=== PATIENT | male | born 1940 | race American Indian/Alaskan Native ===

== ENCOUNTER 2017-10-12 10:08 | Emergency (ER) | payer MEDICARE ==
[2017-10-12 11:05] LABS: Hemoglobin 14.2 gm/dl (11.8-15.2); Mean Corpuscular HGB Conc 33 % (32-34); Mean Corpuscular Hemoglobin 31 pg (28-32); Mean Corpuscular Volume 94 fl (84-94); Platelet Count 161 K/mm3 (140-440); Red Blood Count 4.58 M/mm3 (3.65-5.03); Red Cell Distribution Width 14.8 % (13.2-15.2)
--- NOTE | 2017-10-12 11:17 | Emergency Department Report ---
ED Seizure HPI - General Chief Complaint: Seizure Stated Complaint: SEIZURE Time Seen by Provider: 10/12/17 10:51 Source: patient, EMS Mode of arrival: Stretcher Limitations: No Limitations - History of Present Illness Initial Comments: This is a pleasant 76-year-old gentleman who is accompanied by his daughter today after having had a seizure at 4:30 AM and then a another seizure at around 9 AM today. Patient has a past medical history significant for seizure disorder as well as early onset Alzheimer's dementia and a left hip replacement 2. He is a smoker and former alcoholic who admits to having a glass of wine with dinner every night. The daughter states that the patient is able to ambulate on his own with a cane. The patient reports that he has had a headache since last night. It is in the frontal region and he says that right now the headache is mild but was quite severe previously. The daughter reports that the last seizure that he has had before this episode was roughly 3 months ago. They report that he is very compliant with his medications. Denies any other symptoms. Denies chest pain, shortness of breath, nausea, vomiting, diarrhea, weakness,. Denies any kind of focal neurological symptoms at this time. Denies incontinence or biting the tongue or oral injury. -: Sudden, days(s) (1) Description of Episode: tonic-clonic movement -: minutes(s) (few) Witnessed:: Yes Trauma: No Seizure History: known seizure disorder Place: home Possible Precipitating Event: none Associated Symptoms: denies: chest pain, confusion, cough, diaphoresis, fever/ chills, loss of appetite, malaise, rash, shortness of breath, syncope, weakness , tongue injury, shoulder dislocation Treatments Prior to Arrival: none - Related Data Home Medications Medication Instructions Recorded Confirmed Last Taken Donepezil [Aricept] 5 mg PO QDAY 10/12/17 10/12/17 10/12/17 Phenytoin 125 mg PO QDAY 10/12/17 10/12/17 10/12/17 Tamsulosin [Flomax] 0.4 mg PO QDAY 10/12/17 10/12/17 10/12/17 amLODIPine [Norvasc] 5 mg PO DAILY 10/12/17 10/12/17 10/12/17 Allergies Allergy/AdvReac Type Severity Reaction Status Date / Time No Known Allergies Allergy Unverified 10/12/17 10:41 ED Review of Systems ROS: Stated complaint: SEIZURE Other details as noted in HPI Comment: All other systems reviewed and negative Constitutional: see HPI Eyes: as per HPI ENT: as per HPI Respiratory: see HPI Cardiovascular: as per HPI Endocrine: see HPI Gastrointestinal: as per HPI Genitourinary: as per HPI Musculoskeletal: as per HPI Skin: as per HPI Neurological: as per HPI Psychiatric: as per HPI Hematological/Lymphatic: as per HPI ED Past Medical Hx - Past Medical History Previous Medical History?: Yes Hx Seizures: Yes Additional medical history: prostate cancer - Surgical History Past Surgical History?: Yes Additional Surgical History: L. hip - Social History Smoking Status: Current Every Day Smoker Substance Use Type: Alcohol - Medications Home Medications: Home Medications Medication Instructions Recorded Confirmed Last Taken Type Donepezil [Aricept] 5 mg PO QDAY 10/12/17 10/12/17 10/12/17 History Phenytoin 125 mg PO QDAY 10/12/17 10/12/17 10/12/17 History Tamsulosin [Flomax] 0.4 mg PO QDAY 10/12/17 10/12/17 10/12/17 History amLODIPine [Norvasc] 5 mg PO DAILY 10/12/17 10/12/17 10/12/17 History ED Physical Exam - General Limitations: No Limitations General appearance: alert, in no apparent distress - Head Head exam: Present: atraumatic - Eye Eye exam: Present: normal appearance, PERRL, EOMI - ENT ENT exam: Present: normal exam - Neck Neck exam: Present: normal inspection, full ROM - Respiratory Respiratory exam: Present: normal lung sounds bilaterally - Cardiovascular Cardiovascular Exam: Present: regular rate, normal rhythm, normal heart sounds - GI/Abdominal GI/Abdominal exam: Present: soft, normal bowel sounds ED Course Vital Signs 10/12/17 10/12/17 10/12/17 10:17 10:32 13:00 Temperature 97.8 F Pulse Rate 85 80 Respiratory 16 18 18 Rate Blood Pressure 132/73 132/73 [Left] O2 Sat by Pulse 100 100 100 Oximetry - Reevaluation(s) Reevaluation #1: 10/12/17 11:24 The patient appears to be at baseline at this time. We'll go ahead and assess his phenytoin level. We will also get baseline labs with a CBC and a CMP. Also get a UA. His headache is very mild at this time. unLess it progresses do not think that we should get a head CT. I'll also go ahead and give him Valium here in the emergency room. 10/12/17 16:15 Discussed the results with the patient. Apparently his phenytoin level was low because of a recent decrease in his medications. Per the family is phenytoin level was checked a couple months ago and was elevated. His doctor decided to decrease his phenytoin level. Today it is very low and we did give fosphenytoin IV. Patient is stable at this time. We will go ahead and discharge the patient with the idea that the primary care doctor or neurologist will readjust the patient's phenytoin level. ED Medical Decision Making - Lab Data Result diagrams: 10/12/17 10:44 10/12/17 10:49 Critical care attestation.: If time is entered above; I have spent that time in minutes in the direct care of this critically ill patient, excluding procedure time. ED Disposition Clinical Impression: Seizure disorder Disposition: DC-01 TO HOME OR SELFCARE Is pt being admited?: No Does the pt Need Aspirin: No Condition: Stable Instructions: Recurrent Seizures Adult (ED) Additional Instructions: Follow-up with her primary care doctor or neurologist, rest, fluids, watch for worsening or new symptoms, return as needed to the emergency room, she feels like having a life-threatening emergency, 911. Referrals: PRIMARY CARE, [Primary Care Provider] - 3-5 Days
[2017-10-12 11:20] LABS: BUN/Creatinine Ratio 10; Blood Urea Nitrogen 9 mg/dL (9-20); Hemolysis Index 31
[2017-10-12] MEDS ORDERED: VALIUM IV ONE (11:26)
[2017-10-12] MEDS ORDERED: ATIVAN ONE (12:38)
[2017-10-12] MEDS ORDERED: ATIVAN IV ONE (12:42)
[2017-10-12] MEDS ORDERED: CEREBYX 1,000 MG.PE in NACL 0.9% 100 ML IV ONE (13:33)
[2017-10-12 15:27] VITALS: BP 132/73
[2017-10-12 16:10] LABS: Bilirubin,Urine NEG (Negative); Blood,Urine NEG (Negative); Color,Urine Yellow (Yellow); Protein,Urine <15 mg/dL mg/dL (Negative); Urobilinogen,Urine < 2.0 mg/dL (<2.0); WBC,Urine < 1.0 /HPF (0.0-6.0)
== END 2017-10-12 17:00 | disposition home or self-care (01) ==
LOC: ED 10:08
DX: G40.909 Epilepsy, unspecified, not intractable, without status epilepticus (principal); F17.200 Nicotine dependence, unspecified, uncomplicated; C61 Malignant neoplasm of prostate
CPT/HCPCS: 36415; 80048; 80185; 81001; 85027; 96365; 96375; 99284; J2060; Q2009

== ENCOUNTER 2018-01-09 14:19 | Inpatient (IN) | payer MEDICARE ==
[2018-01-09 16:13] LABS: Basophils % (Auto) 0.6 % (0.0-1.8); Eosinophils % (Auto) 0.3 % (0.0-4.3); Hematocrit 41.7 % (35.5-45.6); Lymphocytes # (Auto) 0.7 K/mm3 (1.2-5.4); Mean Corpuscular HGB Conc 34 % (32-34); Mean Corpuscular Hemoglobin 31 pg (28-32); Mean Corpuscular Volume 92 fl (84-94); Monocytes # (Auto) 0.8 K/mm3 (0.0-0.8); Monocytes % (Auto) 10.9 % (0.0-7.3); Platelet Count 223 K/mm3 (140-440); Red Blood Count 4.55 M/mm3 (3.65-5.03); Red Cell Distribution Width 15.6 % (13.2-15.2)
--- NOTE | 2018-01-09 16:22 | Emergency Department Report ---
ED Shortness of Breath HPI - General Chief Complaint: Dyspnea/Respdistress Stated Complaint: DYSPNEA Time Seen by Provider: 01/09/18 16:21 Source: EMS Mode of arrival: Stretcher Limitations: Altered Mental Status, Other (severe alzheimer disease.) - History of Present Illness Initial Comments: Patient was brought to the emergency room for decreased oxygen saturation. However patient uses oxygen in the [facility]. He was not wearing his oxygen when he was found with decreased oxygen saturation. His oxygen was restarted on his O2 sats went back to 100%. On arrival to the ED his O2 sat was normal. Patient is nonverbal and does not communicate.. He does not answer questions when asked. Patient has history of severe Alzheimer disease. He is bedbound and does not ambulate. MD Complaint: shortness of breath -: Sudden Consistency: now resolved Improves With: oxygen Worsens With: nothing - Related Data Previous Rx's Medication Instructions Recorded Last Taken Type Nitrofurantoin Jay/M-Cryst 100 mg PO Q12HR #14 capsule 01/02/18 Unknown Rx [Macrobid CAP] Donepezil [Aricept] 5 mg PO QPM #30 tablet 01/05/18 Unknown Rx Donepezil [Aricept] 5 mg PO QPM #30 tablet 01/05/18 Unknown Rx Famotidine [Pepcid] 20 mg PO BID #60 tablet 01/05/18 Unknown Rx Ipratropium/Albuterol Sulfate 1 spray IH BID #1 mist.inhal 01/05/18 Unknown Rx [Combivent Respimat] Ipratropium/Albuterol Sulfate 1 ampul IH TIDRT #100 ampul.neb 01/05/18 Unknown Rx [DUONEB *Not for PRN Use*] Tamsulosin [Flomax] 0.4 mg PO QDAY #30 capsule 01/05/18 Unknown Rx amLODIPine [Norvasc] 5 mg PO DAILY #30 tablet 01/05/18 Unknown Rx buPROPion SR [Wellbutrin SR] 150 mg PO BID #60 tablet 01/05/18 Unknown Rx Allergies Allergy/AdvReac Type Severity Reaction Status Date / Time No Known Allergies Allergy Unverified 10/12/17 10:41 ED Review of Systems ROS: Stated complaint: DYSPNEA Other details as noted in HPI Comment: Unobtainable due to pts medical conditions (Alzheimer Dementia.) ED Past Medical Hx - Past Medical History Previous Medical History?: Yes Hx Hypertension: Yes Hx Heart Attack/AMI: No Hx Congestive Heart Failure: No Hx Diabetes: No Hx Pulmonary Embolism: No Hx Renal Disease: No Hx of Cancer: Yes (prostate) Hx Sickle Cell Disease: No Hx Arthritis: Yes Hx Seizures: Yes Hx Kidney Stones: No Hx Asthma: No Hx COPD: No Hx Tuberculosis: No Hx Dementia: Yes (alzheimers) Hx HIV: No Additional medical history: prostate cancer - Surgical History Past Surgical History?: Yes Hx Open Heart Surgery: No Hx Pacemaker: No Hx Internal Defibrillator: No Hx Breast Surgery: No Additional Surgical History: L. hip - Social History Smoking Status: Unknown if ever smoked Substance Use Type: None - Medications Home Medications: Home Medications Medication Instructions Recorded Confirmed Last Taken Type Nitrofurantoin Jay/M-Cryst 100 mg PO Q12HR #14 capsule 01/02/18 01/09/18 Unknown Rx [Macrobid CAP] Donepezil [Aricept] 5 mg PO QPM #30 tablet 01/05/18 01/09/18 Unknown Rx Donepezil [Aricept] 5 mg PO QPM #30 tablet 01/05/18 01/09/18 Unknown Rx Famotidine [Pepcid] 20 mg PO BID #60 tablet 01/05/18 01/09/18 Unknown Rx Ipratropium/Albuterol Sulfate 1 spray IH BID #1 mist.inhal 01/05/18 01/09/18 Unknown Rx [Combivent Respimat] Ipratropium/Albuterol Sulfate 1 ampul IH TIDRT #100 ampul.neb 01/05/18 01/09/18 Unknown Rx [DUONEB *Not for PRN Use*] Tamsulosin [Flomax] 0.4 mg PO QDAY #30 capsule 01/05/18 01/09/18 Unknown Rx amLODIPine [Norvasc] 5 mg PO DAILY #30 tablet 01/05/18 01/09/18 Unknown Rx buPROPion SR [Wellbutrin SR] 150 mg PO BID #60 tablet 01/05/18 01/09/18 Unknown Rx ED Physical Exam - General Limitations: Altered Mental Status General appearance: alert, in no apparent distress - Head Head exam: Present: atraumatic, normocephalic, normal inspection - Eye Eye exam: Present: normal appearance - ENT ENT exam: Present: normal exam - Neck Neck exam: Present: normal inspection - Respiratory Respiratory exam: Present: normal lung sounds bilaterally - Cardiovascular Cardiovascular Exam: Present: regular rate, normal heart sounds - GI/Abdominal GI/Abdominal exam: Present: soft, normal bowel sounds. Absent: tenderness, guarding, rebound - Extremities Exam Extremities exam: Present: normal capillary refill, other (atrophy odf disuse.) . Absent: pedal edema - Back Exam Back exam: Present: full ROM - Neurological Exam Neurological exam: Present: alert - Psychiatric Psychiatric exam: Present: flat affect - Skin Skin exam: Present: warm, dry ED Course Vital Signs 01/09/18 01/09/18 01/09/18 15:08 16:15 18:59 Temperature 97.8 F Pulse Rate 100 H 88 Respiratory 16 18 Rate Blood Pressure 122/80 Blood Pressure 121/73 [Left] O2 Sat by Pulse 98 97 98 Oximetry 01/09/18 19:41 Temperature 98.7 F Pulse Rate 99 H Respiratory 20 Rate Blood Pressure Blood Pressure 139/74 [Left] O2 Sat by Pulse 98 Oximetry - Reevaluation(s) Reevaluation #1: 01/09/18 22:20 i discussed patient care with the hospitalist salon designer Dr Elise. He will admit patient to the hospital for further evaluation and management. ED Medical Decision Making - Lab Data Result diagrams: 01/09/18 16:00 01/09/18 16:00 - EKG Data -: EKG Interpreted by Me EKG shows normal: sinus rhythm Rate: normal (91) - EKG Data When compared to previous EKG there are: previous EKG unavailable Interpretation: nonspecific ST-T wave kelli, other (No STEMI) - Radiology Data Radiology results: report reviewed, image reviewed - Medical Decision Making Shortness of breath. COPD Exacerbation. Critical care attestation.: If time is entered above; I have spent that time in minutes in the direct care of this critically ill patient, excluding procedure time. ED Disposition Clinical Impression: Shortness of breath, COPD exacerbation, Hypoxia, HCAP (healthcare-associated pneumonia) Disposition: OP ADMIT IP TO THIS HOSP Is pt being admited?: Yes Does the pt Need Aspirin: No Condition: Stable Instructions: Chronic Obstructive Pulmonary Disease (ED), Bacterial Pneumonia ( ED) Referrals: PRIMARY CARE, [Primary Care Provider] - 3-5 Days
[2018-01-09 16:28] LABS: BUN/Creatinine Ratio 14; Blood Urea Nitrogen 13 mg/dL (9-20); Hemolysis Index 0
--- NOTE | 2018-01-09 16:57 | XRay Report ---
FINAL REPORT EXAM: XR CHEST 1V AP HISTORY: Shortness of breath TECHNIQUE: AP portable view of the chest PRIORS: None. FINDINGS: Lines, tubes, and devices: N/A Lungs and pleura: Trachea is normal in position. Lungs are clear of infiltrate, pleural effusion, vascular congestion, or pneumothorax. Cardiomediastinal silhouette: Cardiac and mediastinal silhouettes are unremarkable. Other: Bony structures are intact. IMPRESSION: No acute cardiopulmonary process seen.
[2018-01-09] MEDS ORDERED: NACL 0.9% 1000 ML 1,000 ML IV ONE (19:28)
--- NOTE | 2018-01-09 21:56 | Cat Scan Report ---
FINAL REPORT EXAM: CT HEAD/BRAIN WO CON HISTORY: altered mental status TECHNIQUE: Standard unenhanced CT of the head at 5.0 millimeter axial increments. PRIORS: CT head 01/02/2018 FINDINGS: The ventricular system is normal in size and configuration. There is moderate cerebral atrophy and small vessel ischemic changes again noted. There is no evidence for mass lesion, mass effect, midline shift, acute intracranial hemorrhage, or acute ischemia/ infarction. No evidence for acute skull fracture is seen. No abnormality in the overlying scalp soft tissues is seen. Visualized paranasal sinuses are clear. IMPRESSION: Atrophy and small vessel ischemic changes. No acute intracranial process noted. No change.
[2018-01-09] MEDS ORDERED: DUONEB *Not for PRN Use IH ONE (22:18)
--- NOTE | 2018-01-09 22:28 | Cat Scan Report ---
FINAL REPORT EXAM: CT ANGIO CHEST HISTORY: shortness of breath TECHNIQUE: Enhanced CT of the chest at 1.25 mm axial intervals following a pulmonary embolism protocol. Coronal and sagittal imaging were also obtained. Coronal oblique MIP projections were obtained. Contrast: 100 ml of Omnipaque 350 given IV. PRIORS: None. FINDINGS: There is no evidence for pulmonary embolism in the main pulmonary artery, right and left pulmonary arteries or their major distributions. However, CT does not exclude distal pulmonary emboli. There is a small area of consolidation lateral aspect of the right upper lobe. Bibasilar infiltrates are noted. Extensive emphysematous changes are present bilaterally. Bullous changes are present in the right base medially. There is layering debris within the trachea. There is no evidence for mediastinal, hilar, or axillary adenopathy. Cardiovascular structures are within normal limits. No evidence for ventricular chamber enlargement is seen. Images through the lung bases include the upper abdomen which show no abnormalities of the visualized abdominal viscera. Bony structures demonstrate superior endplate compression deformities of T7, T8, and L1. Focal areas of lucency are present throughout the thoracic spine. These may be related osteoporosis however. IMPRESSION: 1. no evidence for pulmonary embolism. 2. Consolidation in the lateral right upper lobe and bibasilar infiltrates noted. Findings are probably infectious. 3. Extensive emphysematous changes bilaterally. 4. Layering debris within the trachea, possibly due to secretions 5. Compression deformities of T7, T8, and L1. 6. Lucencies throughout the thoracic spine. These are probably related osteoporosis. However, given the patient's age, other entity such as multiple myeloma are not entirely excluded.
[2018-01-09] MEDS ORDERED: ZOSYN/NS 4.5GM/100ML 4.5 GM/100 ML VIAL IV ONE (23:00)
[2018-01-09] MEDS ORDERED: VANCOMYCIN/NS 1 GM/250 ML 1 GM/250 ML BAG IV SCH (23:00)
[2018-01-09] MEDS ORDERED: VANCOMYCIN PHARMACY TO DOSE IV SCH (23:00)
[2018-01-09] MEDS ORDERED: PROVENTIL IH PRN (23:07)
[2018-01-10] MEDS ORDERED: VANCOMYCIN/NS 1 GM/250 ML 1 GM/250 ML BAG IV ONE
[2018-01-10] MEDS ORDERED: HEPARIN ONE (00:15)
[2018-01-10] MEDS: HEPARIN SUB-Q SCH ×3 (00:21→22:06)
--- NOTE | 2018-01-10 05:09 | History and Physical Report ---
CHIEF COMPLAINT: Shortness of breath. HISTORY OF PRESENT ILLNESS: The patient is a 77-year-old male brought from the skilled nursing because of difficulty in breathing. The patient wears oxygen at work, found not to be wearing his oxygen at the skilled nursing, and started complaining of shortness of breath. When EMS got there, the patient's oxygen saturation was low and the oxygen was placed on the patient and oxygen saturation went back to 100. There was no history of chest pain, no history of fever or chills, nausea or vomiting. The patient was brought to the Emergency Room. PAST MEDICAL HISTORY: Pertinent for hypertension, prostate cancer, arthritis, seizure disorder, dementia, and the patient is bedbound, and noncommunicative. PAST SURGICAL HISTORY: Pertinent for left hip surgery. FAMILY HISTORY: Noncontributory. SOCIAL HISTORY: The patient stays at the skilled nursing. Does not smoke cigarettes, does not drink or use illicit drugs. MEDICATIONS: The patient is on nitrofurantoin (Macrobid) 100 mg by mouth twice daily, Aricept 5 mg by mouth in the evening time, Pepcid 20 mg by mouth twice daily, Combivent inhaler one inhalation twice daily. Also, the patient is on Duo nebulizer of 1 amp 3 times a day. The patient is on Flomax 0.4 mg by mouth daily, Norvasc, amlodipine 5 mg by mouth daily, Wellbutrin, bupropion 150 mg by mouth twice daily. ALLERGIES: There are no known drug allergies. REVIEW OF SYSTEMS: CONSTITUTIONAL: There is no fever, no chills, no diaphoresis. HEENT: There is no headache or sore throat. CARDIOVASCULAR SYSTEM: There is no chest pain or orthopnea. RESPIRATORY SYSTEM: Shortness of breath is present. There is no cough. GASTROINTESTINAL SYSTEM: There is no nausea, no vomiting, no abdominal pain, diarrhea or constipation. NEUROLOGICAL SYSTEM: There is no numbness, no dizziness; however, there is change in mental status, which is chronic. The patient is demented. MUSCULOSKELETAL SYSTEM: There is no joint pain or swelling. DERMATOLOGICAL SYSTEM: There is no skin rash or itching. GENITOURINARY SYSTEM: There is no dysuria, hematuria or flank pain. Rest of system review is normal. PHYSICAL EXAMINATION: GENERAL: At the time of exam, the patient was found to be lying on his bed, lethargic, arousable, noncommunicative, and not in acute distress. VITAL SIGNS: At the time of evaluation shows temperature of 98.7 degrees Fahrenheit, pulse of 100, respiration 20, blood pressure of 139/74, with O2 sat of 98% on oxygen via nasal cannula at 2 liters per minute. HEENT: Exam shows pupils to be round, reactive to light and accommodation. NECK: Supple with no JVD or carotid bruit. CARDIOVASCULAR SYSTEM: Show normal first and second heart sounds that were heard with no gallops or murmurs. RESPIRATORY SYSTEM: Show reduced air entry on both sides of the lung with no abnormal breath sounds. GASTROINTESTINAL SYSTEM: Show abdomen to be full, soft, and nontender with no organomegaly or rigidity. NEURO: Exam shows no focal deficit elicited with the patient being noncommunicative. MUSCULOSKELETAL SYSTEM: Exam show no joint swelling or tenderness. DERMATOLOGICAL SYSTEM: Shows no skin rash. GENITOURINARY SYSTEM: Exam shows no costovertebral angle tenderness. PERTINENT LABORATORY DATA AND IMAGING STUDIES: The patient has CBC done with normal white count, normal hemoglobin, and normal hematocrit. CBC differential shows elevated monocyte count of 10.5% with slightly elevated segmented neutrophil of 78.2%, and no significant band were found. The patient's arterial blood gas shows normal pH of 7.43, normal pO2 of 43.9, and low pO2 of 73, with normal O2 sat of 95% and this was done on FiO2 of 32%. The patient's chemistry shows slight decrease in sodium level of 131, with low chloride level of 86.3%, elevated CO2 of 31. The patient's renal function was unremarkable. Brain natriuretic peptide level is normal. The patient's troponin level came back unremarkable. IMAGING STUDIES: The patient had a CT of the head without contrast done that shows atrophy and small vessel ischemic changes with no acute intracranial process noted. Also, the patient had CT angiogram of the chest done and this shows no evidence of pulmonary embolism. There is finding of consolidation in the lateral right upper lobe and bibasilar infiltrate noted. Findings, probably infectious according to the radiologist, there is also finding of extensive emphysematous changes bilaterally and there is debris within the trachea, possibly due to secretion. There is finding of lucencies throughout the thoracic spine and the radiologist said that these are probably related to osteoporosis and since; however, given the patient's age, other entities such as multiple myeloma not entirely excluded. The patient's chest x-ray shows no active cardiopulmonary process. DIAGNOSES: 1. Bilateral pneumonia. 2. Chronic obstructive pulmonary disease exacerbation. PLAN: The patient will be admitted to medical floor and will be treated using hospital-associated pneumonia protocol. The patient will be started on intravenous Zosyn 3.375 g every 8 hours and will continue the other for vancomycin brought in by the Emergency Room with pharmacy to adjust the dose. The patient will be on intravenous Solu-Medrol 60 mg every 8 hours for treatment of length of chronic obstructive pulmonary disease exacerbation and will be on Duo nebulizer 3 times a day. The patient will also be on his home medication as shown in the medication reconciliation section. The patient's diet will be 2 g sodium diet. , the patient will be on Tylenol 650 mg by mouth every 4 hours as needed for fever and headache, and will be on intravenous normal saline at 75 mL an hour. The patient will also be on intravenous Zofran 4 mg every 6 hours needed for nausea and vomiting and will be on oxygen by nasal cannula at 2 liter per minute. JOB# [id number] OCN/NTS MTDD
[2018-01-10] MEDS ORDERED: ZOSYN/NS 3.375GM/50ML 3.375 GM/50 ML BAG IV SCH (06:00)
[2018-01-10] MEDS: NACL 0.9% 1000 ML 1,000 ML IV SCH ×2 (06:20→22:06)
[2018-01-10] MEDS: DUONEB *Not for PRN Use IH SCH ×3 (08:58→19:56)
[2018-01-10] MEDS: NORVASC PO SCH (11:10)
[2018-01-10] MEDS: PEPCID PO SCH ×2 (11:10→22:07)
[2018-01-10] MEDS: FLOMAX PO SCH (11:10)
[2018-01-10] MEDS: WELLBUTRIN SR PO SCH ×2 (11:11→22:07)
[2018-01-10] MEDS ORDERED: VANCOMYCIN 750 MG in NACL 0.9% 250ML 250 ML IV SCH (12:00)
[2018-01-10] MEDS: ZOSYN/NS 4.5GM/100ML 4.5 GM/100 ML VIAL IV SCH ×2 (14:42→22:07)
--- NOTE | 2018-01-10 15:30 | Progress Note ---
Assessment and Plan Assessment and plan: --Acute on chronic hypoxic respiratory failure Oxygen titrate to O2 sats more than 90%, nebulizers, IV steroids IV antibiotics --Bilateral pneumonia; on CT chest Blood cultures, IV antibiotics, oxygen and nebulizers --Dementia; continue current home medications --Hyponatremia. IV fluids and closely monitor electrolytes --DVT prophylaxis; Lovenox Closely monitor the patient and adjust management as needed Plan of care is reviewed with the patient and his nurse; Physical therapy occupational therapy Possible discharge in 1-2 days if stable History Interval history: Patient seen and examined in his room, Medical records reviewed Agent was admitted with Worsening shortness of breath and bilateral pneumonia on CT The patient feels better minimally communicative Not no acute distress No new events reported by the nursing Vital signs stable Hospitalist Physical - Constitutional Vitals: Temp Pulse Resp BP Pulse Ox 98.7 F 104 H 16 162/97 94 01/09/18 19:41 01/10/18 13:44 01/10/18 13:44 01/10/18 11:10 01/10/18 09:00 General appearance: Present: no acute distress, well-nourished - EENT Eyes: Present: PERRL, EOM intact - Neck Neck: Present: supple, normal ROM - Respiratory Respiratory effort: normal Respiratory: bilateral: diminished, negative: rales, rhonchi, wheezing - Cardiovascular Rhythm: regular Heart Sounds: Present: S1 & S2 - Extremities Extremities: no ischemia, No edema - Abdominal General gastrointestinal: soft, non-tender, non-distended, normal bowel sounds - Integumentary Integumentary: Present: clear, warm - Psychiatric Psychiatric: cooperative, other (infused) - Neurologic Neurologic: CNII-XII intact, moves all extremities Results - Labs CBC & Chem 7: 01/09/18 16:00 01/09/18 16:00 Labs: Laboratory Last Values WBC 7.5 K/mm3 (4.5-11.0) 01/09/18 16:00 RBC 4.55 M/mm3 (3.65-5.03) 01/09/18 16:00 Hgb 14.0 gm/dl (11.8-15.2) 01/09/18 16:00 Hct 41.7 % (35.5-45.6) 01/09/18 16:00 MCV 92 fl (84-94) 01/09/18 16:00 MCH 31 pg (28-32) 01/09/18 16:00 MCHC 34 % (32-34) 01/09/18 16:00 RDW 15.6 % (13.2-15.2) H 01/09/18 16:00 Plt Count 223 K/mm3 (140-440) 01/09/18 16:00 Lymph % (Auto) 10.0 % (13.4-35.0) L 01/09/18 16:00 [place] % (Auto) 10.9 % (0.0-7.3) H 01/09/18 16:00 Eos % (Auto) 0.3 % (0.0-4.3) 01/09/18 16:00 Baso % (Auto) 0.6 % (0.0-1.8) 01/09/18 16:00 Lymph # 0.7 K/mm3 (1.2-5.4) L 01/09/18 16:00 [place] # 0.8 K/mm3 (0.0-0.8) 01/09/18 16:00 Eos # 0.0 K/mm3 (0.0-0.4) 01/09/18 16:00 Baso # 0.0 K/mm3 (0.0-0.1) 01/09/18 16:00 Seg Neutrophils % 78.2 % (40.0-70.0) H 01/09/18 16:00 Seg Neutrophils # 5.8 K/mm3 (1.8-7.7) 01/09/18 16:00 POC ABG pH 7.436 (7.35-7.45) 01/09/18 22:07 POC ABG pCO2 43.9 (35-45) 01/09/18 22:07 POC ABG pO2 73 (80-105) L 01/09/18 22:07 POC ABG HCO3 29.6 01/09/18 22:07 POC ABG Total CO2 31 01/09/18 22:07 POC ABG O2 Sat 95 01/09/18 22:07 POC ABG Base Excess 5 01/09/18 22:07 FiO2 32 % 01/09/18 22:07 Sodium 131 mmol/L (137-145) L 01/09/18 16:00 Potassium 4.3 mmol/L (3.6-5.0) D 01/09/18 16:00 Chloride 86.3 mmol/L (98-107) L 01/09/18 16:00 Carbon Dioxide 31 mmol/L (22-30) H 01/09/18 16:00 Anion Gap 18 mmol/L 01/09/18 16:00 BUN 13 mg/dL (9-20) 01/09/18 16:00 Creatinine 0.9 mg/dL (0.8-1.5) 01/09/18 16:00 Estimated GFR > 60 ml/min 01/09/18 16:00 BUN/Creatinine Ratio 14 % 01/09/18 16:00 Glucose 102 mg/dL (75-100) H 01/09/18 16:00 Calcium 9.0 mg/dL (8.4-10.2) 01/09/18 16:00 Troponin T < 0.010 ng/mL (0.00-0.029) 01/09/18 16:58 NT-Pro-B Natriuret Pep 406.5 pg/mL (0-900) 01/09/18 16:58
[2018-01-10] MEDS ORDERED: ARICEPT PO SCH (18:00)
[2018-01-10] MEDS: ARICEPT PO SCH (18:19)
[2018-01-10] MEDS: MACROBID PO SCH ×2 (18:19→22:06)
[2018-01-10] MEDS: VANCOMYCIN/NS 1 GM/250 ML 1 GM/250 ML BAG IV SCH (22:08)
[2018-01-11] MEDS: ZOSYN/NS 4.5GM/100ML 4.5 GM/100 ML VIAL IV SCH ×3 (05:11→23:29)
[2018-01-11] MEDS: DUONEB *Not for PRN Use IH SCH ×3 (07:32→20:05)
[2018-01-11] MEDS: PEPCID PO SCH ×3 (10:19→23:41)
[2018-01-11] MEDS: FLOMAX PO SCH (10:19)
[2018-01-11] MEDS: NORVASC PO SCH (10:19)
[2018-01-11] MEDS: WELLBUTRIN SR PO SCH ×2 (10:19→23:32)
[2018-01-11] MEDS: MACROBID PO SCH ×2 (10:20→23:29)
[2018-01-11] MEDS: HEPARIN SUB-Q SCH ×3 (10:21→23:41)
--- NOTE | 2018-01-11 14:04 | Progress Note ---
Assessment and Plan Assessment and plan: --Bilateral pneumonia; on CT chest Blood cultures, IV antibiotics, oxygen and nebulizers --Acute on chronic hypoxic respiratory failure Oxygen titrate to O2 sats more than 90%, nebulizers, IV steroids IV antibiotics --Dementia; continue current home medications --Hyponatremia. IV fluids and closely monitor electrolytes --DVT prophylaxis; Lovenox Closely monitor the patient and adjust management as needed Plan of care is reviewed with the patient and his nurse; Physical therapy occupational therapy Possible discharge in 1-2 days if stable History Interval history: Patient seen and examined medical records reviewed Admitted with altered level of consciousness and bilateral pneumonia On antibiotics Patient feels better, minimally communicative Vital signs reviewed stable Afebrile Hospitalist Physical - Constitutional Vitals: Temp Pulse Resp BP Pulse Ox 99.2 F 92 H 16 140/68 92 01/11/18 07:39 01/11/18 13:23 01/11/18 13:23 01/11/18 10:19 01/11/18 07:39 General appearance: Present: no acute distress, well-nourished - EENT Eyes: Present: PERRL, EOM intact - Neck Neck: Present: supple, normal ROM - Respiratory Respiratory effort: normal Respiratory: bilateral: diminished, negative: rales, rhonchi, wheezing - Cardiovascular Rhythm: regular Heart Sounds: Present: S1 & S2 - Extremities Extremities: no ischemia, No edema - Abdominal General gastrointestinal: soft, non-tender, non-distended, normal bowel sounds - Integumentary Integumentary: Present: clear, warm - Psychiatric Psychiatric: appropriate mood/affect, cooperative - Neurologic Neurologic: CNII-XII intact, moves all extremities Results - Labs CBC & Chem 7: 01/09/18 16:00 01/09/18 16:00 Labs: Laboratory Last Values WBC 7.5 K/mm3 (4.5-11.0) 01/09/18 16:00 RBC 4.55 M/mm3 (3.65-5.03) 01/09/18 16:00 Hgb 14.0 gm/dl (11.8-15.2) 01/09/18 16:00 Hct 41.7 % (35.5-45.6) 01/09/18 16:00 MCV 92 fl (84-94) 01/09/18 16:00 MCH 31 pg (28-32) 01/09/18 16:00 MCHC 34 % (32-34) 01/09/18 16:00 RDW 15.6 % (13.2-15.2) H 01/09/18 16:00 Plt Count 223 K/mm3 (140-440) 01/09/18 16:00 Lymph % (Auto) 10.0 % (13.4-35.0) L 01/09/18 16:00 [place] % (Auto) 10.9 % (0.0-7.3) H 01/09/18 16:00 Eos % (Auto) 0.3 % (0.0-4.3) 01/09/18 16:00 Baso % (Auto) 0.6 % (0.0-1.8) 01/09/18 16:00 Lymph # 0.7 K/mm3 (1.2-5.4) L 01/09/18 16:00 [place] # 0.8 K/mm3 (0.0-0.8) 01/09/18 16:00 Eos # 0.0 K/mm3 (0.0-0.4) 01/09/18 16:00 Baso # 0.0 K/mm3 (0.0-0.1) 01/09/18 16:00 Seg Neutrophils % 78.2 % (40.0-70.0) H 01/09/18 16:00 Seg Neutrophils # 5.8 K/mm3 (1.8-7.7) 01/09/18 16:00 POC ABG pH 7.436 (7.35-7.45) 01/09/18 22:07 POC ABG pCO2 43.9 (35-45) 01/09/18 22:07 POC ABG pO2 73 (80-105) L 01/09/18 22:07 POC ABG HCO3 29.6 01/09/18 22:07 POC ABG Total CO2 31 01/09/18 22:07 POC ABG O2 Sat 95 01/09/18 22:07 POC ABG Base Excess 5 01/09/18 22:07 FiO2 32 % 01/09/18 22:07 Sodium 131 mmol/L (137-145) L 01/09/18 16:00 Potassium 4.3 mmol/L (3.6-5.0) D 01/09/18 16:00 Chloride 86.3 mmol/L (98-107) L 01/09/18 16:00 Carbon Dioxide 31 mmol/L (22-30) H 01/09/18 16:00 Anion Gap 18 mmol/L 01/09/18 16:00 BUN 13 mg/dL (9-20) 01/09/18 16:00 Creatinine 0.9 mg/dL (0.8-1.5) 01/09/18 16:00 Estimated GFR > 60 ml/min 01/09/18 16:00 BUN/Creatinine Ratio 14 % 01/09/18 16:00 Glucose 102 mg/dL (75-100) H 01/09/18 16:00 Calcium 9.0 mg/dL (8.4-10.2) 01/09/18 16:00 Troponin T < 0.010 ng/mL (0.00-0.029) 01/09/18 16:58 NT-Pro-B Natriuret Pep 406.5 pg/mL (0-900) 01/09/18 16:58
[2018-01-11] MEDS: NACL 0.9% 1000 ML 1,000 ML IV SCH (15:53)
[2018-01-11] MEDS: ARICEPT PO SCH (17:08)
--- NOTE | 2018-01-11 22:40 | Event Note ---
Date: 01/11/18 Just stopped by to see this personal patient of my that i had sent to the ER , admitted for sxs management. Records reviewed, and agree with current management.Labs fairly stable.Examination is fair at this time.
[2018-01-11] MEDS: VANCOMYCIN/NS 1 GM/250 ML 1 GM/250 ML BAG IV SCH (23:30)
[2018-01-12 05:37] LABS: BUN/Creatinine Ratio 23; Blood Urea Nitrogen 16 mg/dL (9-20); Calcium 8.5 mg/dL (8.4-10.2); Hemolysis Index 6
[2018-01-12] MEDS: ZOSYN/NS 4.5GM/100ML 4.5 GM/100 ML VIAL IV SCH ×3 (06:27→22:15)
[2018-01-12] MEDS: WELLBUTRIN SR PO SCH ×2 (09:41→22:09)
[2018-01-12] MEDS: FLOMAX PO SCH (09:41)
[2018-01-12] MEDS: PEPCID PO SCH ×2 (09:41→22:09)
[2018-01-12] MEDS: NORVASC PO SCH (09:42)
[2018-01-12] MEDS: HEPARIN SUB-Q SCH ×2 (09:43→22:09)
[2018-01-12] MEDS: DUONEB *Not for PRN Use IH SCH ×3 (10:02→20:27)
[2018-01-12] MEDS: NACL 0.9% 1000 ML 1,000 ML IV SCH (13:50)
[2018-01-12] MEDS: ARICEPT PO SCH (17:32)
--- NOTE | 2018-01-12 18:28 | Progress Note ---
Assessment and Plan Assessment and plan: ---Bilateral pneumonia; on CT chest, symptoms significantly improved Blood cultures negative to date, continue IV antibiotics, oxygen and nebulizers --Acute on chronic hypoxic respiratory failure Oxygen titrate to O2 sats more than 90%, nebulizers, tapering dose of steroid --Dementia; continue current home medications --Hyponatremia. Significant improvement IV fluids and closely monitor electrolytes --DVT prophylaxis; heparin Physical therapy occupational therapy The patient is medically stable for discharge on oral antibiotics and steroids Discussed with case management, need precertification from insurance to return to group home Patient is medically stable for discharge History Interval history: Since seen and examined medical records reviewed Feels better, not in acute distress No new events reported, vital signs reviewed Hospitalist Physical - Constitutional Vitals: Temp Pulse Resp BP Pulse Ox 98.0 F 87 18 132/68 97 01/12/18 13:55 01/12/18 14:10 01/12/18 14:10 01/12/18 13:55 01/12/18 14:01 General appearance: Present: no acute distress, well-nourished - EENT Eyes: Present: PERRL, EOM intact - Neck Neck: Present: supple, normal ROM - Respiratory Respiratory effort: normal Respiratory: bilateral: diminished, rhonchi (scanty), negative: rales, wheezing - Cardiovascular Rhythm: regular Heart Sounds: Present: S1 & S2 - Extremities Extremities: no ischemia, No edema - Abdominal General gastrointestinal: soft, non-tender, non-distended, normal bowel sounds - Integumentary Integumentary: Present: clear, warm - Psychiatric Psychiatric: other (noncommunicative) - Neurologic Neurologic: other (noncommunicative) Results - Labs CBC & Chem 7: 01/09/18 16:00 01/12/18 04:53 Labs: Laboratory Last Values WBC 7.5 K/mm3 (4.5-11.0) 01/09/18 16:00 RBC 4.55 M/mm3 (3.65-5.03) 01/09/18 16:00 Hgb 14.0 gm/dl (11.8-15.2) 01/09/18 16:00 Hct 41.7 % (35.5-45.6) 01/09/18 16:00 MCV 92 fl (84-94) 01/09/18 16:00 MCH 31 pg (28-32) 01/09/18 16:00 MCHC 34 % (32-34) 01/09/18 16:00 RDW 15.6 % (13.2-15.2) H 01/09/18 16:00 Plt Count 223 K/mm3 (140-440) 01/09/18 16:00 Lymph % (Auto) 10.0 % (13.4-35.0) L 01/09/18 16:00 [place] % (Auto) 10.9 % (0.0-7.3) H 01/09/18 16:00 Eos % (Auto) 0.3 % (0.0-4.3) 01/09/18 16:00 Baso % (Auto) 0.6 % (0.0-1.8) 01/09/18 16:00 Lymph # 0.7 K/mm3 (1.2-5.4) L 01/09/18 16:00 [place] # 0.8 K/mm3 (0.0-0.8) 01/09/18 16:00 Eos # 0.0 K/mm3 (0.0-0.4) 01/09/18 16:00 Baso # 0.0 K/mm3 (0.0-0.1) 01/09/18 16:00 Seg Neutrophils % 78.2 % (40.0-70.0) H 01/09/18 16:00 Seg Neutrophils # 5.8 K/mm3 (1.8-7.7) 01/09/18 16:00 POC ABG pH 7.436 (7.35-7.45) 01/09/18 22:07 POC ABG pCO2 43.9 (35-45) 01/09/18 22:07 POC ABG pO2 73 (80-105) L 01/09/18 22:07 POC ABG HCO3 29.6 01/09/18 22:07 POC ABG Total CO2 31 01/09/18 22:07 POC ABG O2 Sat 95 01/09/18 22:07 POC ABG Base Excess 5 01/09/18 22:07 FiO2 32 % 01/09/18 22:07 Sodium 133 mmol/L (137-145) L 01/12/18 04:53 Potassium 3.8 mmol/L (3.6-5.0) 01/12/18 04:53 Chloride 94.7 mmol/L (98-107) L 01/12/18 04:53 Carbon Dioxide 27 mmol/L (22-30) 01/12/18 04:53 Anion Gap 15 mmol/L 01/12/18 04:53 BUN 16 mg/dL (9-20) 01/12/18 04:53 Creatinine 0.7 mg/dL (0.8-1.5) L 01/12/18 04:53 Estimated GFR > 60 ml/min 01/12/18 04:53 BUN/Creatinine Ratio 23 % 01/12/18 04:53 Glucose 97 mg/dL (75-100) 01/12/18 04:53 POC Glucose 129 (70-105) H 01/12/18 16:25 Calcium 8.5 mg/dL (8.4-10.2) 01/12/18 04:53 Troponin T < 0.010 ng/mL (0.00-0.029) 01/09/18 16:58 NT-Pro-B Natriuret Pep 406.5 pg/mL (0-900) 01/09/18 16:58
[2018-01-12] MEDS: VANCOMYCIN/NS 1 GM/250 ML 1 GM/250 ML BAG IV SCH (22:09)
--- NOTE | 2018-01-12 22:49 | Event Note ---
Date: 01/12/18 Patient seen, labs/records reviewed.no new issues at this time. He looks emaciated.will need more aggressive nutrition support.
[2018-01-13] MEDS: ZOSYN/NS 4.5GM/100ML 4.5 GM/100 ML VIAL IV SCH ×3 (06:14→22:10)
[2018-01-13] MEDS: NACL 0.9% 1000 ML 1,000 ML IV SCH (08:36)
--- NOTE | 2018-01-13 08:39 | Progress Note ---
Assessment and Plan Assessment and plan: --Acute on chronic hypoxic respiratory failure Oxygen titrate to O2 sats more than 90%, nebulizers, tapering dose of steroid ---Bilateral pneumonia; on CT chest, symptoms significantly improved Blood cultures negative to date, continue IV antibiotics, oxygen and nebulizers --Dementia; continue current home medications --Hyponatremia. Significant improvement IV fluids and closely monitor electrolytes --DVT prophylaxis; heparin Physical therapy occupational therapy The patient is medically stable for discharge on oral antibiotics and steroids Discussed with case management, need precertification from insurance to return to [facility] Patient is medically stable for discharge History Interval history: Patient Seen and examined medical records reviewed No new events reported Patient is noncommunicative except for 1 or 2 words intermittently Vital signs reviewed Patient is medically stable for discharge Awaiting insurance authorization Hospitalist Physical - Constitutional Vitals: Temp Pulse Resp BP Pulse Ox 98.9 F 95 H 20 114/69 92 01/13/18 08:21 01/13/18 08:21 01/13/18 08:21 01/13/18 08:21 01/13/18 08:21 General appearance: Present: no acute distress, well-nourished - EENT Eyes: Present: PERRL, EOM intact - Neck Neck: Present: supple, normal ROM - Respiratory Respiratory effort: normal Respiratory: bilateral: diminished, negative: rales, rhonchi, wheezing - Cardiovascular Rhythm: regular Heart Sounds: Present: S1 & S2 - Extremities Extremities: no ischemia, No edema - Abdominal General gastrointestinal: soft, non-tender, non-distended, normal bowel sounds - Integumentary Integumentary: Present: clear, warm - Psychiatric Psychiatric: cooperative, other (minimally communicative) - Neurologic Neurologic: other (general weakness) Results - Labs CBC & Chem 7: 01/09/18 16:00 01/12/18 04:53 Labs: Laboratory Last Values WBC 7.5 K/mm3 (4.5-11.0) 01/09/18 16:00 RBC 4.55 M/mm3 (3.65-5.03) 01/09/18 16:00 Hgb 14.0 gm/dl (11.8-15.2) 01/09/18 16:00 Hct 41.7 % (35.5-45.6) 01/09/18 16:00 MCV 92 fl (84-94) 01/09/18 16:00 MCH 31 pg (28-32) 01/09/18 16:00 MCHC 34 % (32-34) 01/09/18 16:00 RDW 15.6 % (13.2-15.2) H 01/09/18 16:00 Plt Count 223 K/mm3 (140-440) 01/09/18 16:00 Lymph % (Auto) 10.0 % (13.4-35.0) L 01/09/18 16:00 [place] % (Auto) 10.9 % (0.0-7.3) H 01/09/18 16:00 Eos % (Auto) 0.3 % (0.0-4.3) 01/09/18 16:00 Baso % (Auto) 0.6 % (0.0-1.8) 01/09/18 16:00 Lymph # 0.7 K/mm3 (1.2-5.4) L 01/09/18 16:00 [place] # 0.8 K/mm3 (0.0-0.8) 01/09/18 16:00 Eos # 0.0 K/mm3 (0.0-0.4) 01/09/18 16:00 Baso # 0.0 K/mm3 (0.0-0.1) 01/09/18 16:00 Seg Neutrophils % 78.2 % (40.0-70.0) H 01/09/18 16:00 Seg Neutrophils # 5.8 K/mm3 (1.8-7.7) 01/09/18 16:00 POC ABG pH 7.436 (7.35-7.45) 01/09/18 22:07 POC ABG pCO2 43.9 (35-45) 01/09/18 22:07 POC ABG pO2 73 (80-105) L 01/09/18 22:07 POC ABG HCO3 29.6 01/09/18 22:07 POC ABG Total CO2 31 01/09/18 22:07 POC ABG O2 Sat 95 01/09/18 22:07 POC ABG Base Excess 5 01/09/18 22:07 FiO2 32 % 01/09/18 22:07 Sodium 133 mmol/L (137-145) L 01/12/18 04:53 Potassium 3.8 mmol/L (3.6-5.0) 01/12/18 04:53 Chloride 94.7 mmol/L (98-107) L 01/12/18 04:53 Carbon Dioxide 27 mmol/L (22-30) 01/12/18 04:53 Anion Gap 15 mmol/L 01/12/18 04:53 BUN 16 mg/dL (9-20) 01/12/18 04:53 Creatinine 0.7 mg/dL (0.8-1.5) L 01/12/18 04:53 Estimated GFR > 60 ml/min 01/12/18 04:53 BUN/Creatinine Ratio 23 % 01/12/18 04:53 Glucose 97 mg/dL (75-100) 01/12/18 04:53 POC Glucose 129 (70-105) H 01/12/18 16:25 Calcium 8.5 mg/dL (8.4-10.2) 01/12/18 04:53 Troponin T < 0.010 ng/mL (0.00-0.029) 01/09/18 16:58 NT-Pro-B Natriuret Pep 406.5 pg/mL (0-900) 01/09/18 16:58
[2018-01-13] MEDS: PEPCID PO SCH ×2 (09:16→22:09)
[2018-01-13] MEDS: WELLBUTRIN SR PO SCH ×2 (09:17→22:09)
[2018-01-13] MEDS: NORVASC PO SCH (09:17)
[2018-01-13] MEDS: FLOMAX PO SCH (09:17)
[2018-01-13] MEDS: HEPARIN SUB-Q SCH ×2 (09:18→22:10)
[2018-01-13] MEDS: DUONEB *Not for PRN Use IH SCH ×3 (10:18→22:22)
[2018-01-13] MEDS: ARICEPT PO SCH (18:19)
--- NOTE | 2018-01-13 21:29 | Event Note ---
Date: 01/13/18 Patient seen, resting in bed, labs /records reviewed, and fair, no new issues at this time, patient resting peacefully in bed.Will continue to monitor along with you.
[2018-01-13] MEDS: VANCOMYCIN/NS 1 GM/250 ML 1 GM/250 ML BAG IV SCH (22:55)
[2018-01-14] MEDS: ZOSYN/NS 4.5GM/100ML 4.5 GM/100 ML VIAL IV SCH ×3 (05:40→21:54)
[2018-01-14] MEDS: NACL 0.9% 1000 ML 1,000 ML IV SCH ×2 (05:40→21:53)
[2018-01-14] MEDS: DUONEB *Not for PRN Use IH SCH ×3 (09:11→20:04)
[2018-01-14] MEDS: NORVASC PO SCH (10:01)
[2018-01-14] MEDS: HEPARIN SUB-Q SCH ×2 (10:03→21:55)
[2018-01-14] MEDS: WELLBUTRIN SR PO SCH ×2 (10:03→22:01)
[2018-01-14] MEDS: PEPCID PO SCH ×2 (10:03→21:54)
[2018-01-14] MEDS: FLOMAX PO SCH (10:03)
--- NOTE | 2018-01-14 12:45 | Progress Note ---
Assessment and Plan Assessment and plan: --Bilateral pneumonia; on CT chest, symptoms significantly improved Continue IV antibiotics total 7 days and DC, cultures negative to date --Acute on chronic hypoxic respiratory failure Oxygen titrate to O2 sats more than 90%, nebulizers, change steroids to oral --Dementia; continue current home medications --Hyponatremia. Significant improvement IV fluids and closely monitor electrolytes --DVT prophylaxis; heparin Physical therapy occupational therapy Patient is medically stable for discharge, Awaiting insurance approval to return to intermediate History Interval history: Patient Seen and examined medical records reviewed No new events reported by the nursing Patient's comfortable minimally communicative Vital signs stable Hospitalist Physical - Constitutional Vitals: Temp Pulse Resp BP Pulse Ox 98.4 F 94 H 20 109/74 98 01/14/18 08:17 01/14/18 10:01 01/14/18 10:00 01/14/18 10:01 01/14/18 09:12 General appearance: Present: no acute distress, well-nourished - EENT Eyes: Present: PERRL, EOM intact - Neck Neck: Present: supple, normal ROM - Respiratory Respiratory effort: normal Respiratory: bilateral: diminished, negative: rales, rhonchi, wheezing - Cardiovascular Rhythm: regular Heart Sounds: Present: S1 & S2 - Extremities Extremities: no ischemia, No edema - Abdominal General gastrointestinal: soft, non-tender, non-distended, normal bowel sounds - Integumentary Integumentary: Present: clear, warm - Psychiatric Psychiatric: appropriate mood/affect, cooperative - Neurologic Neurologic: CNII-XII intact, moves all extremities Results - Labs CBC & Chem 7: 01/09/18 16:00 01/12/18 04:53 Labs: Laboratory Last Values WBC 7.5 K/mm3 (4.5-11.0) 01/09/18 16:00 RBC 4.55 M/mm3 (3.65-5.03) 01/09/18 16:00 Hgb 14.0 gm/dl (11.8-15.2) 01/09/18 16:00 Hct 41.7 % (35.5-45.6) 01/09/18 16:00 MCV 92 fl (84-94) 01/09/18 16:00 MCH 31 pg (28-32) 01/09/18 16:00 MCHC 34 % (32-34) 01/09/18 16:00 RDW 15.6 % (13.2-15.2) H 01/09/18 16:00 Plt Count 223 K/mm3 (140-440) 01/09/18 16:00 Lymph % (Auto) 10.0 % (13.4-35.0) L 01/09/18 16:00 [place] % (Auto) 10.9 % (0.0-7.3) H 01/09/18 16:00 Eos % (Auto) 0.3 % (0.0-4.3) 01/09/18 16:00 Baso % (Auto) 0.6 % (0.0-1.8) 01/09/18 16:00 Lymph # 0.7 K/mm3 (1.2-5.4) L 01/09/18 16:00 [place] # 0.8 K/mm3 (0.0-0.8) 01/09/18 16:00 Eos # 0.0 K/mm3 (0.0-0.4) 01/09/18 16:00 Baso # 0.0 K/mm3 (0.0-0.1) 01/09/18 16:00 Seg Neutrophils % 78.2 % (40.0-70.0) H 01/09/18 16:00 Seg Neutrophils # 5.8 K/mm3 (1.8-7.7) 01/09/18 16:00 POC ABG pH 7.436 (7.35-7.45) 01/09/18 22:07 POC ABG pCO2 43.9 (35-45) 01/09/18 22:07 POC ABG pO2 73 (80-105) L 01/09/18 22:07 POC ABG HCO3 29.6 01/09/18 22:07 POC ABG Total CO2 31 01/09/18 22:07 POC ABG O2 Sat 95 01/09/18 22:07 POC ABG Base Excess 5 01/09/18 22:07 FiO2 32 % 01/09/18 22:07 Sodium 133 mmol/L (137-145) L 01/12/18 04:53 Potassium 3.8 mmol/L (3.6-5.0) 01/12/18 04:53 Chloride 94.7 mmol/L (98-107) L 01/12/18 04:53 Carbon Dioxide 27 mmol/L (22-30) 01/12/18 04:53 Anion Gap 15 mmol/L 01/12/18 04:53 BUN 16 mg/dL (9-20) 01/12/18 04:53 Creatinine 0.7 mg/dL (0.8-1.5) L 01/12/18 04:53 Estimated GFR > 60 ml/min 01/12/18 04:53 BUN/Creatinine Ratio 23 % 01/12/18 04:53 Glucose 97 mg/dL (75-100) 01/12/18 04:53 POC Glucose 129 (70-105) H 01/12/18 16:25 Calcium 8.5 mg/dL (8.4-10.2) 01/12/18 04:53 Troponin T < 0.010 ng/mL (0.00-0.029) 01/09/18 16:58 NT-Pro-B Natriuret Pep 406.5 pg/mL (0-900) 01/09/18 16:58
--- NOTE | 2018-01-14 17:08 | Event Note ---
Date: 01/14/18 patient seen, resting in bed, records reviewed, no new issues, at this time.continue to monitor along with you.
[2018-01-14] MEDS: ARICEPT PO SCH (17:30)
[2018-01-14] MEDS: VANCOMYCIN/NS 1 GM/250 ML 1 GM/250 ML BAG IV SCH (21:54)
[2018-01-14] MEDS: TYLENOL PO PRN (21:55)
[2018-01-15] MEDS: ZOSYN/NS 4.5GM/100ML 4.5 GM/100 ML VIAL IV SCH ×3 (05:51→22:40)
[2018-01-15] MEDS: DUONEB *Not for PRN Use IH SCH ×3 (07:39→19:11)
[2018-01-15] MEDS: HEPARIN SUB-Q SCH ×2 (09:35→22:25)
[2018-01-15] MEDS: WELLBUTRIN SR PO SCH ×2 (09:35→22:25)
[2018-01-15] MEDS: FLOMAX PO SCH (09:36)
[2018-01-15] MEDS: DELTASONE PO SCH (09:36)
[2018-01-15] MEDS: PEPCID PO SCH ×2 (09:36→22:35)
[2018-01-15] MEDS: NORVASC PO SCH (09:48)
--- NOTE | 2018-01-15 12:02 | XRay Report ---
RIGHT HIP, ONE VIEW History: Deformity. Findings: Single AP view of the right hip demonstrates no evidence for displaced fracture or malalignment. The right hemipelvis is grossly intact. The soft tissues are unremarkable. Osteopenia is noted. Impression: No acute abnormality is detected. Osteopenia.
[2018-01-15] MEDS: NACL 0.9% 1000 ML 1,000 ML IV SCH (14:57)
--- NOTE | 2018-01-15 15:55 | Progress Note ---
Assessment and Plan Assessment and plan: 77-year-old male patient presented from long-term was admitted through emergency room with worsening shortness of breath. Noted to have bilateral pneumonia and acute exacerbation of COPD, acute on chronic respiratory failure.Placed on IV antibiotics, symptoms significantly improved, medically stable for discharge and transfer to long-term, awaiting insurance approval Received 7 days of antibiotics, stop today. Discharge plan case management --Acute on chronic hypoxic respiratory failure Oxygen titrate to O2 sats more than 90%, nebulizers, change steroids to oral --Bilateral pneumonia; on CT chest, symptoms significantly improved Received IV antibiotics total 7 days and DC today, cultures negative to date --Dementia; continue current home medications --Hyponatremia. Improved --DVT prophylaxis; heparin Physical therapy occupational therapy Patient is medically stable for discharge, Awaiting insurance approval to return to long-term History Interval history: Patient seen and examined medical records New events reported by the nursing staff Mild pain on the right hip, x-ray hip no acute abnormalities noted Vital signs stable Hospitalist Physical - Constitutional Vitals: Temp Pulse Resp BP Pulse Ox 98.6 F 83 19 127/70 97 01/15/18 14:19 01/15/18 14:50 01/15/18 14:50 01/15/18 14:19 01/15/18 14:19 General appearance: Present: no acute distress, well-nourished - EENT Eyes: Present: PERRL, EOM intact - Neck Neck: Present: supple, normal ROM - Respiratory Respiratory effort: normal Respiratory: bilateral: diminished, negative: rales, rhonchi, wheezing - Cardiovascular Rhythm: regular Heart Sounds: Present: S1 & S2 - Extremities Extremities: no ischemia, No edema - Abdominal General gastrointestinal: soft, non-tender, non-distended - Integumentary Integumentary: Present: clear, warm - Psychiatric Psychiatric: appropriate mood/affect, cooperative - Neurologic Neurologic: CNII-XII intact, moves all extremities Results - Labs CBC & Chem 7: 01/09/18 16:00 01/12/18 04:53 Labs: Laboratory Last Values WBC 7.5 K/mm3 (4.5-11.0) 01/09/18 16:00 RBC 4.55 M/mm3 (3.65-5.03) 01/09/18 16:00 Hgb 14.0 gm/dl (11.8-15.2) 01/09/18 16:00 Hct 41.7 % (35.5-45.6) 01/09/18 16:00 MCV 92 fl (84-94) 01/09/18 16:00 MCH 31 pg (28-32) 01/09/18 16:00 MCHC 34 % (32-34) 01/09/18 16:00 RDW 15.6 % (13.2-15.2) H 01/09/18 16:00 Plt Count 223 K/mm3 (140-440) 01/09/18 16:00 Lymph % (Auto) 10.0 % (13.4-35.0) L 01/09/18 16:00 [place] % (Auto) 10.9 % (0.0-7.3) H 01/09/18 16:00 Eos % (Auto) 0.3 % (0.0-4.3) 01/09/18 16:00 Baso % (Auto) 0.6 % (0.0-1.8) 01/09/18 16:00 Lymph # 0.7 K/mm3 (1.2-5.4) L 01/09/18 16:00 [place] # 0.8 K/mm3 (0.0-0.8) 01/09/18 16:00 Eos # 0.0 K/mm3 (0.0-0.4) 01/09/18 16:00 Baso # 0.0 K/mm3 (0.0-0.1) 01/09/18 16:00 Seg Neutrophils % 78.2 % (40.0-70.0) H 01/09/18 16:00 Seg Neutrophils # 5.8 K/mm3 (1.8-7.7) 01/09/18 16:00 POC ABG pH 7.436 (7.35-7.45) 01/09/18 22:07 POC ABG pCO2 43.9 (35-45) 01/09/18 22:07 POC ABG pO2 73 (80-105) L 01/09/18 22:07 POC ABG HCO3 29.6 01/09/18 22:07 POC ABG Total CO2 31 01/09/18 22:07 POC ABG O2 Sat 95 01/09/18 22:07 POC ABG Base Excess 5 01/09/18 22:07 FiO2 32 % 01/09/18 22:07 Sodium 133 mmol/L (137-145) L 01/12/18 04:53 Potassium 3.8 mmol/L (3.6-5.0) 01/12/18 04:53 Chloride 94.7 mmol/L (98-107) L 01/12/18 04:53 Carbon Dioxide 27 mmol/L (22-30) 01/12/18 04:53 Anion Gap 15 mmol/L 01/12/18 04:53 BUN 16 mg/dL (9-20) 01/12/18 04:53 Creatinine 0.7 mg/dL (0.8-1.5) L 01/12/18 04:53 Estimated GFR > 60 ml/min 01/12/18 04:53 BUN/Creatinine Ratio 23 % 01/12/18 04:53 Glucose 97 mg/dL (75-100) 01/12/18 04:53 POC Glucose 129 (70-105) H 01/12/18 16:25 Calcium 8.5 mg/dL (8.4-10.2) 01/12/18 04:53 Troponin T < 0.010 ng/mL (0.00-0.029) 01/09/18 16:58 NT-Pro-B Natriuret Pep 406.5 pg/mL (0-900) 01/09/18 16:58
[2018-01-15] MEDS: ARICEPT PO SCH (17:18)
--- NOTE | 2018-01-15 22:21 | Event Note ---
Date: 01/15/18 Patient seen, resting in bed, records reviewed.no new issues at this time, no recent labs.continue to follow you along side.
[2018-01-16] MEDS: ZOSYN/NS 4.5GM/100ML 4.5 GM/100 ML VIAL IV SCH (06:26)
[2018-01-16] MEDS: NACL 0.9% 1000 ML 1,000 ML IV SCH ×2 (06:26→23:01)
--- NOTE | 2018-01-16 08:58 | Progress Note ---
Assessment and Plan Assessment and plan: --Acute on chronic hypoxic respiratory failure Oxygen titrate to O2 sats more than 90%, nebulizers, change steroids to oral --Bilateral pneumonia; on CT chest, symptoms significantly improved Received IV antibiotics total 7 days, cultures negative to date --Dementia; continue current home medications --Hyponatremia. Improved --DVT prophylaxis; heparin Physical therapy occupational therapy Patient is medically stable for discharge, Awaiting insurance approval to return to [facility] [facility] History Interval history: No new issues overnight Hospitalist Physical - Constitutional Vitals: Temp Pulse Resp BP Pulse Ox 98.8 F 84 18 135/69 92 01/16/18 07:39 01/16/18 07:39 01/16/18 07:39 01/16/18 07:39 01/16/18 07:39 General appearance: Present: no acute distress, well-nourished - EENT Eyes: Present: PERRL, EOM intact ENT: hearing intact, clear oral mucosa, dentition normal - Neck Neck: Present: supple, normal ROM - Respiratory Respiratory effort: normal Respiratory: bilateral: CTA - Cardiovascular Rhythm: regular Heart Sounds: Present: S1 & S2. Absent: gallop, rub - Extremities Extremities: no ischemia, No edema, Full ROM - Abdominal General gastrointestinal: soft, non-tender, non-distended, normal bowel sounds - Integumentary Integumentary: Present: clear, warm, dry - Neurologic Neurologic: CNII-XII intact, moves all extremities Results - Labs CBC & Chem 7: 01/09/18 16:00 01/12/18 04:53 Labs: Laboratory Last Values WBC 7.5 K/mm3 (4.5-11.0) 01/09/18 16:00 RBC 4.55 M/mm3 (3.65-5.03) 01/09/18 16:00 Hgb 14.0 gm/dl (11.8-15.2) 01/09/18 16:00 Hct 41.7 % (35.5-45.6) 01/09/18 16:00 MCV 92 fl (84-94) 01/09/18 16:00 MCH 31 pg (28-32) 01/09/18 16:00 MCHC 34 % (32-34) 01/09/18 16:00 RDW 15.6 % (13.2-15.2) H 01/09/18 16:00 Plt Count 223 K/mm3 (140-440) 01/09/18 16:00 Lymph % (Auto) 10.0 % (13.4-35.0) L 01/09/18 16:00 [place] % (Auto) 10.9 % (0.0-7.3) H 01/09/18 16:00 Eos % (Auto) 0.3 % (0.0-4.3) 01/09/18 16:00 Baso % (Auto) 0.6 % (0.0-1.8) 01/09/18 16:00 Lymph # 0.7 K/mm3 (1.2-5.4) L 01/09/18 16:00 [place] # 0.8 K/mm3 (0.0-0.8) 01/09/18 16:00 Eos # 0.0 K/mm3 (0.0-0.4) 01/09/18 16:00 Baso # 0.0 K/mm3 (0.0-0.1) 01/09/18 16:00 Seg Neutrophils % 78.2 % (40.0-70.0) H 01/09/18 16:00 Seg Neutrophils # 5.8 K/mm3 (1.8-7.7) 01/09/18 16:00 POC ABG pH 7.436 (7.35-7.45) 01/09/18 22:07 POC ABG pCO2 43.9 (35-45) 01/09/18 22:07 POC ABG pO2 73 (80-105) L 01/09/18 22:07 POC ABG HCO3 29.6 01/09/18 22:07 POC ABG Total CO2 31 01/09/18 22:07 POC ABG O2 Sat 95 01/09/18 22:07 POC ABG Base Excess 5 01/09/18 22:07 FiO2 32 % 01/09/18 22:07 Sodium 133 mmol/L (137-145) L 01/12/18 04:53 Potassium 3.8 mmol/L (3.6-5.0) 01/12/18 04:53 Chloride 94.7 mmol/L (98-107) L 01/12/18 04:53 Carbon Dioxide 27 mmol/L (22-30) 01/12/18 04:53 Anion Gap 15 mmol/L 01/12/18 04:53 BUN 16 mg/dL (9-20) 01/12/18 04:53 Creatinine 0.7 mg/dL (0.8-1.5) L 01/12/18 04:53 Estimated GFR > 60 ml/min 01/12/18 04:53 BUN/Creatinine Ratio 23 % 01/12/18 04:53 Glucose 97 mg/dL (75-100) 01/12/18 04:53 POC Glucose 129 (70-105) H 01/12/18 16:25 Calcium 8.5 mg/dL (8.4-10.2) 01/12/18 04:53 Troponin T < 0.010 ng/mL (0.00-0.029) 01/09/18 16:58 NT-Pro-B Natriuret Pep 406.5 pg/mL (0-900) 01/09/18 16:58
[2018-01-16] MEDS: DUONEB *Not for PRN Use IH SCH ×3 (09:19→20:04)
[2018-01-16] MEDS: FLOMAX PO SCH (09:28)
[2018-01-16] MEDS: NORVASC PO SCH (09:28)
[2018-01-16] MEDS: DELTASONE PO SCH (09:30)
[2018-01-16] MEDS: PEPCID PO SCH ×2 (09:30→22:59)
[2018-01-16] MEDS: HEPARIN SUB-Q SCH ×2 (09:30→22:59)
[2018-01-16] MEDS: WELLBUTRIN SR PO SCH ×2 (09:30→22:59)
[2018-01-16] MEDS: ARICEPT PO SCH (17:12)
[2018-01-16] MEDS: VANCOMYCIN/NS 1 GM/250 ML 1 GM/250 ML BAG IV SCH (23:00)
[2018-01-16] MEDS: TYLENOL PO PRN (23:01)
--- NOTE | 2018-01-16 23:30 | Event Note ---
Date: 01/16/18 Patient seen, examined, resting in bed, records reviewed. C/o feels ok at this time.Continue with double ABX therapy, monitor along with you.
[2018-01-17] MEDS: NACL 0.9% 1000 ML 1,000 ML IV SCH (06:30)
[2018-01-17] MEDS: DUONEB *Not for PRN Use IH SCH ×2 (08:30→14:05)
[2018-01-17] MEDS: FLOMAX PO SCH (09:33)
[2018-01-17] MEDS: NORVASC PO SCH (09:33)
[2018-01-17] MEDS: PEPCID PO SCH (09:33)
[2018-01-17] MEDS: HEPARIN SUB-Q SCH (09:33)
[2018-01-17] MEDS: DELTASONE PO SCH (09:33)
[2018-01-17] MEDS: WELLBUTRIN SR PO SCH (09:33)
--- NOTE | 2018-01-17 10:54 | Discharge Summary ---
Providers - Providers Date of Admission: 01/09/18 23:03 Date of discharge: 01/17/18 Attending physician: PREMA HADLEY 01/10/18 11:59 Physical Therapy Evaluation and Treat [CONS] Urgent Comment: Reason For Exam: General Weakness 01/10/18 12:00 Occupational Therapy Evaluate and Treat [CONS] Urgent Comment: Reason For Exam: General Weakness Primary care physician: [employer] Hospitalization Reason for admission: PNA Condition: Stable Hospital course: 77-year-old male with significant past medical history of hypertension, prostate cancer and Alzheimer's dementia who presented to the emergency department with complaints of dyspnea. Patient presented from retirement with noted to have decreased oxygen saturation. Patient is noted to be nonverbal at baseline and does not communicate. On admission, patient was found to have bilateral pneumonia confirmed by CT scan of the chest and acute on chronic hypoxic respiratory failure.. Patient was treated with IV antibiotics. Patient has slowly significant improvement throughout hospitalization. Blood cultures were noted to be negative. Case management was consulted after completion of antibiotics with discharge planning. Case management arranged home with home health. Patient unfortunately was declined for SNF by his insurance due to nonoperative patient on his previous retirement visit. Dedicated discharge time 34 minutes. Disposition: DC- TO HOME OR SELFCARE Time spent for discharge: 34 - Discharge Diagnoses (1) COPD exacerbation Status: Acute (2) HCAP (healthcare-associated pneumonia) Status: Acute (3) Hypoxia Status: Acute (4) Shortness of breath Status: Acute Core Measure Documentation - Palliative Care Palliative Care/ Comfort Measures: Not Applicable - Core Measures Any of the following diagnoses?: none Exam - Constitutional Vitals: Temp Pulse Resp BP Pulse Ox 98.6 F 86 20 115/61 97 01/17/18 08:16 01/17/18 08:16 01/17/18 08:16 01/17/18 08:16 01/17/18 08:16 General appearance: Present: no acute distress, well-nourished - EENT Eyes: Present: PERRL ENT: hearing intact, clear oral mucosa - Neck Neck: Present: supple, normal ROM - Respiratory Respiratory effort: normal Respiratory: bilateral: CTA - Cardiovascular Heart Sounds: Present: S1 & S2. Absent: rub, click - Extremities Extremities: pulses symmetrical, No edema Peripheral Pulses: within normal limits - Abdominal General gastrointestinal: Present: soft, non-tender, non-distended, normal bowel sounds Male genitourinary: Present: normal - Integumentary Integumentary: Present: clear, warm, dry - Musculoskeletal Musculoskeletal: gait normal, strength equal bilaterally - Psychiatric Psychiatric: appropriate mood/affect, intact judgment & insight - Neurologic Neurologic: CNII-XII intact, moves all extremities Plan Activity: advance as tolerated Weight Bearing Status: Weight Bear as Tolerated Diet: regular Special Instructions: home health RN Follow up with: PRIMARY CARE, [Primary Care Provider] - 3-5 Days Prescriptions: amLODIPine [Norvasc] 5 mg PO DAILY #30 tablet buPROPion SR [Wellbutrin SR] 150 mg PO BID #60 tablet Cefuroxime Axetil [Ceftin] 500 mg PO Q12H #10 ml Donepezil [Aricept] 5 mg PO QPM #30 tablet Famotidine [Pepcid] 20 mg PO BID #60 tablet Ipratropium/Albuterol Sulfate [DUONEB *Not for PRN Use*] 1 ampul IH TIDRT #100 ampul.neb methylPREDNISolone [Medrol] 4 mg PO QAM #1 tab.ds.pk Tamsulosin [Flomax] 0.4 mg PO QDAY #30 capsule
[2018-01-17 13:56] VITALS: BP 129/75
== END 2018-01-17 16:05 | disposition home health service (06) | DRG 193 ==
LOC: ED 14:19 → 2B-ACE 23:03
PROVIDERS: ADMIT Internal Medicine; ATTEND Hospitalist
PROC: 4A033R1 Measurement of Arterial Saturation, Peripheral, Percutaneous Approach (ICD-10-PCS; principal; 2018-01-09)
DX: J18.9 Pneumonia, unspecified organism (principal); J96.21 Acute and chronic respiratory failure with hypoxia; J44.1 Chronic obstructive pulmonary disease with (acute) exacerbation; J44.0 Chronic obstructive pulmonary disease with (acute) lower respiratory infection; E87.1 Hypo-osmolality and hyponatremia; G30.9 Alzheimer's disease, unspecified; F02.80 Dementia in other diseases classified elsewhere, unspecified severity, without behavioral disturbance, psychotic disturbance, mood disturbance, and anxiety; Z74.01 Bed confinement status; I10 Essential (primary) hypertension; M19.90 Unspecified osteoarthritis, unspecified site; Z85.46 Personal history of malignant neoplasm of prostate
CPT/HCPCS: 36415; 70450; 71045; 71275; 80048; 82803; 82962; 83880; 84484; 85025; 87040; 93005; 93010; 94640; 94760; 96374; G8978-GP; G8979-GP; G8987-GO; G8988-GO; J1644; J2543; J2920; J2930; J3370; J7030; J7050; J7512; Q9967